=== PATIENT | male | born 1960 | race Caucasian/White ===

== ENCOUNTER 2016-12-21 14:05 | Inpatient (IN) | payer BC ==
[2016-12-21] VITALS (7 sets, daily range): BP systolic 135–170; BP diastolic 68–78
[~2016-12-21] VITALS: Ht 185.4 cm; Wt 73.1 kg
[~2016-12-21 14:05] MED LIST: ASPIR-TRIN325 M1 PO; ASPIRIN81 M1 PO; CRESTOR5 MG PO; LOPRESSOR12.5 MG PO; NOHOMEMEDS; OTC COUGH MED; PLAVIX75 MG PO; Zestril,Prinivil PO; Zocor PO
[2016-12-21 15:35] LABS: HEMATOCRIT 17.7 % (38.0-50.0); MCH 32.2 PG (29.0-34.0); MCHC 31.1 G/DL (30.0-36.0); MCV 103.5 FL (86-99); MEAN PLAT.VOLUME 10.7 uM^3 (9.0-12.4); NRBC (%) 0.5 /100 WBC (0-0); PLATELET COUNT 74 K/uL (156-360); RBC DIS.WIDTH-CV 16.6 % (11.8-14.6); RBC DIS.WIDTH-SD 60.7 % (39-53); RED BLOOD COUNT 1.71 M/uL (4.00-5.50); WHITE BLOOD COUNT 5.6 K/uL (4.1-10.2)
[2016-12-21 15:38] LABS: CHLORIDE 99 mEq/L (99-109); POTASSIUM 4.4 mEq/L (3.7-5.4); SODIUM 136 mEq/L (136-147)
[2016-12-21 15:39] LABS: GLUCOSE 89 mg/dL (70-99)
[2016-12-21 15:41] LABS: ANION GAP 14 MEQ/L (2-14)
[2016-12-21 15:43] LABS: GFR ESTIMATE (CALCULATED) 39 mL/min/
[2016-12-21 15:44] LABS: UREA NITROGEN (BUN) 19 mg/dL (9-23)
[2016-12-21 15:49] LABS: TROP-I INTERPRETATION NEGATIVE; TROPONIN-I < 0.01 ng/mL (0.0-0.30)
[2016-12-21 17:37] LABS: IMM.RETIC FRACTION 30.7 % (3-19); RETIC HGB EQUIVALENT 34.8 (28-36)
[2016-12-21] MEDS ORDERED: ZESTRIL2.5 MG PO (17:53)
[2016-12-21] MEDS ORDERED: LOPRESSOR25 MG PO (17:53)
[2016-12-21] MEDS ORDERED: LO-DOSE ASPIRIN81 M2 PO (17:53)
[2016-12-21 19:19] LABS: TOTAL BILIRUBIN 0.9 mg/dL (0.0-1.0)
[2016-12-21 19:20] LABS: ALKALINE PHOSPHATASE 81 IU/L (3-129)
[2016-12-21 19:23] LABS: DIRECT BILIRUBIN 0.5 mg/dL (0.0-0.3)
[2016-12-21 19:50] LABS: LACTATE DEHYDROGENASE 120 IU/L (20-246)
[2016-12-21 22:55] LABS: GLOBULINS 8.9 G/DL (2.3-3.5)
[2016-12-22] VITALS (16 sets, daily range): BP systolic 103–167; BP diastolic 51–75
[2016-12-22 04:35] LABS: INTER. NORMALIZED RATIO 1.2; PROTHROMBIN TIME 12.1 (9.2-11.2); PTT 27.5 (25-32)
[2016-12-22 04:38] LABS: CHLORIDE 102 mEq/L (99-109); POTASSIUM 3.7 mEq/L (3.7-5.4); SODIUM 138 mEq/L (136-147)
[2016-12-22 04:39] LABS: GLUCOSE 80 mg/dL (70-99)
[2016-12-22 04:40] LABS: HEMATOCRIT 20.8 % (38.0-50.0); MCH 32.1 PG (29.0-34.0); MCHC 33.2 G/DL (30.0-36.0); NRBC (%) 0.9 /100 WBC (0-0); PLATELET COUNT 65 K/uL (156-360); RBC DIS.WIDTH-CV 18.4 % (11.8-14.6); RBC DIS.WIDTH-SD 61.7 % (39-53); RED BLOOD COUNT 2.15 M/uL (4.00-5.50); WHITE BLOOD COUNT 4.6 K/uL (4.1-10.2)
[2016-12-22 04:41] LABS: ANION GAP 13 MEQ/L (2-14); MCV 96.7 FL (86-99)
[2016-12-22 04:43] LABS: GFR ESTIMATE (CALCULATED) 41 mL/min/
[2016-12-22 04:44] LABS: UREA NITROGEN (BUN) 17 mg/dL (9-23)
[2016-12-22 09:22] LABS: HEMATOCRIT 23.7 % (38.0-50.0); MCV 95.2 FL (86-99)
[2016-12-22 12:36] LABS: URINE TOTAL PROTEIN 417 MG/DL (0-10)
[2016-12-22 12:52] LABS: ADD MIUA? YES; BILIRUBIN NEGATIVE; BLOOD SMALL; COLOR YELLOW ((YELLOW)); GLUCOSE (STRIP) NEGATIVE; KETONES NEGATIVE; LEUKOCYTES NEGATIVE; NITRITE NEGATIVE; PROTEIN (STRIP) 30; SPECIFIC GRAVITY 1.012 (1.000-1.030); UROBILINOGEN 0.2 MG/DL (0.2-1.0)
[2016-12-22 13:03] LABS: BACTERIA NONE SEEN /HPF; EPITHELIAL CELLS NONE SEEN /HPF; MUCUS TRACE /LPF; RED BLOOD CELLS 0-5 /HPF (0-5); UCUL ADDED? NO; WHITE BLOOD CELLS 0-5 /HPF (0-5)
[2016-12-22 18:05] LABS: HEMATOCRIT 26.1 % (38.0-50.0); MCV 94.2 FL (86-99)
[2016-12-23] VITALS (7 sets, daily range): BP systolic 124–158; BP diastolic 59–76
[2016-12-23 06:54] LABS: HEMATOCRIT 27.2 % (38.0-50.0); MCH 30.7 PG (29.0-34.0); MCHC 32.4 G/DL (30.0-36.0); MCV 94.8 FL (86-99); MEAN PLAT.VOLUME 10.4 uM^3 (9.0-12.4); NRBC (%) 0.5 /100 WBC (0-0); PLATELET COUNT 64 K/uL (156-360); RBC DIS.WIDTH-SD 60.3 % (39-53); RED BLOOD COUNT 2.87 M/uL (4.00-5.50); WHITE BLOOD COUNT 4.2 K/uL (4.1-10.2)
[2016-12-23 07:21] LABS: ANION GAP 15 MEQ/L (2-14); CHLORIDE 99 MEQ/L (99-109); GFR ESTIMATE (CALCULATED) 51 mL/min/; GLUCOSE 79 mg/dL (70-99); POTASSIUM 3.9 MEQ/L (3.7-5.4); SAMPLE HEMOLYSIS CHECK 0; SAMPLE ICTERIC CHECK 0; SAMPLE LIPEMIA CHECK 0; SODIUM 137 MEQ/L (136-147); UREA NITROGEN (BUN) 13 mg/dL (9-23)
[2016-12-23 11:34] LABS: POC NON-PRINT COM 1 ND
[2016-12-23 13:05] LABS: ALBUMIN 3.33 G/DL (3.6-4.9); ALBUMIN PERCENT 28.2 %; ALPHA-1 GLOBULIN 0.34 G/DL (0.15-0.40); ALPHA-1 PERCENT 2.9 %
[2016-12-23 13:06] LABS: URINE GEL NUMBER 86-9
[2016-12-23 13:06] LABS: ALPHA-2 GLOBULIN 0.83 G/DL (0.45-0.85); BETA PERCENT 9.3 %; GAMMA PERCENT 52.6 %; SERUM GEL NO. 86-6
[2016-12-24] VITALS (12 sets, daily range): BP systolic 125–164; BP diastolic 61–83
[2016-12-24 06:36] LABS: EOSINOPHIL (%) 2.2 % (0-5); EOSINOPHIL COUNT 0.1 K/uL (0-0.3); HEMATOCRIT 22.9 % (38.0-50.0); INSTRUMENT ABS NEUTROPHIL CT 1.5 K/uL; LYMPHOCYTE COUNT 1.9 K/uL (1.0-2.8); MCH 32.2 PG (29.0-34.0); MCHC 33.6 G/DL (30.0-36.0); MCV 95.8 FL (86-99); MEAN PLAT.VOLUME 10.8 uM^3 (9.0-12.4); MONOCYTE (%) 11.5 % (3-12); MONOCYTE COUNT 0.5 K/uL (0-0.8); NEUTROPHIL (%) 37.4 % (45-76); NEUTROPHIL COUNT 1.5 K/uL (1.8-6.4); NRBC (%) 0.5 /100 WBC (0-0); PLATELET COUNT 61 K/uL (156-360); RBC DIS.WIDTH-CV 17.2 % (11.8-14.6); RBC DIS.WIDTH-SD 58.5 % (39-53); RED BLOOD COUNT 2.39 M/uL (4.00-5.50); WHITE BLOOD COUNT 4.1 K/uL (4.1-10.2)
[2016-12-24 06:58] LABS: ANION GAP 14 MEQ/L (2-14); CHLORIDE 100 MEQ/L (99-109); GFR ESTIMATE (CALCULATED) 55 mL/min/; GLUCOSE 86 mg/dL (70-99); POTASSIUM 3.8 MEQ/L (3.7-5.4); SAMPLE HEMOLYSIS CHECK 0; SAMPLE ICTERIC CHECK 0; SAMPLE LIPEMIA CHECK 0; SODIUM 137 MEQ/L (136-147); UREA NITROGEN (BUN) 13 mg/dL (9-23)
[2016-12-24 20:40] LABS: IMMUNOGLOBULIN A 5981 MG/DL (40-350); IMMUNOGLOBULIN G 247 MG/DL (650-1600); IMMUNOGLOBULIN M < 20 MG/DL (50-300)
[2016-12-25 02:41] VITALS: BP 152/79
[2016-12-25 06:14] LABS: URINE TOTAL PROTEIN 451 MG/DL (0-10)
[2016-12-25 08:09] VITALS: BP 154/76
[2016-12-25 12:03] VITALS: BP 146/71
[2016-12-25 16:40] VITALS: BP 133/67
[2016-12-25 16:46] LABS: HEMATOCRIT 24.2 % (38.0-50.0); MCH 31.4 PG (29.0-34.0); MCHC 33.5 G/DL (30.0-36.0); MCV 93.8 FL (86-99); MEAN PLAT.VOLUME 9.7 uM^3 (9.0-12.4); NRBC (%) 0.5 /100 WBC (0-0); PLATELET COUNT 53 K/uL (156-360); RBC DIS.WIDTH-CV 17.2 % (11.8-14.6); RBC DIS.WIDTH-SD 57.4 % (39-53); RED BLOOD COUNT 2.58 M/uL (4.00-5.50)
[2016-12-25 19:00] VITALS: BP 140/63
[2016-12-26 00:01] VITALS: BP 135/62
[2016-12-26 06:11] LABS: MCH 31.2 PG (29.0-34.0); MCHC 33.2 G/DL (30.0-36.0); MEAN PLAT.VOLUME 10.5 uM^3 (9.0-12.4); NRBC (%) 0.8 /100 WBC (0-0); PLATELET COUNT 54 K/uL (156-360); RBC DIS.WIDTH-CV 17.1 % (11.8-14.6); RBC DIS.WIDTH-SD 55.9 % (39-53); RED BLOOD COUNT 2.66 M/uL (4.00-5.50); WHITE BLOOD COUNT 3.9 K/uL (4.1-10.2)
[2016-12-26 06:37] LABS: ANION GAP 16 MEQ/L (2-14); CHLORIDE 97 MEQ/L (99-109); GFR ESTIMATE (CALCULATED) > 59 mL/min/; GLUCOSE 86 mg/dL (70-99); POTASSIUM 3.7 MEQ/L (3.7-5.4); SAMPLE HEMOLYSIS CHECK 0; SAMPLE ICTERIC CHECK 0; SAMPLE LIPEMIA CHECK 0; SODIUM 136 MEQ/L (136-147); UREA NITROGEN (BUN) 17 mg/dL (9-23)
[2016-12-26 09:14] VITALS: BP 135/82
[2016-12-26 15:15] VITALS: BP 146/67
[2016-12-26 20:12] VITALS: BP 140/62
[2016-12-27] VITALS (7 sets, daily range): BP systolic 120–159; BP diastolic 57–69
[2016-12-27 06:39] LABS: HEMATOCRIT 24.5 % (38.0-50.0); MCH 31.4 PG (29.0-34.0); MCHC 33.1 G/DL (30.0-36.0); MEAN PLAT.VOLUME 10.1 uM^3 (9.0-12.4); NRBC (%) 0.5 /100 WBC (0-0); PLATELET COUNT 53 K/uL (156-360); RBC DIS.WIDTH-CV 16.6 % (11.8-14.6); RED BLOOD COUNT 2.58 M/uL (4.00-5.50); WHITE BLOOD COUNT 3.9 K/uL (4.1-10.2)
[2016-12-27 13:06] LABS: ABS NEUTROPHIL COUNT 1.4; EOSINOPHIL ABS CT 0
[2016-12-28] VITALS (12 sets, daily range): BP systolic 116–145; BP diastolic 55–67
[2016-12-28 06:05] LABS: HEMATOCRIT 22.8 % (38.0-50.0); MCHC 32.9 G/DL (30.0-36.0); MCV 94.2 FL (86-99); RBC DIS.WIDTH-CV 16.2 % (11.8-14.6); RBC DIS.WIDTH-SD 54.1 % (39-53); RED BLOOD COUNT 2.42 M/uL (4.00-5.50); WHITE BLOOD COUNT 4.4 K/uL (4.1-10.2)
[2016-12-28 06:30] LABS: ANION GAP 10 MEQ/L (2-14); CHLORIDE 97 MEQ/L (99-109); GFR ESTIMATE (CALCULATED) 44 mL/min/; GLUCOSE 81 mg/dL (70-99); POTASSIUM 4.4 MEQ/L (3.7-5.4); SAMPLE HEMOLYSIS CHECK 0; SAMPLE ICTERIC CHECK 0; SAMPLE LIPEMIA CHECK 0; SODIUM 135 MEQ/L (136-147); UREA NITROGEN (BUN) 19 mg/dL (9-23)
[2016-12-28 07:58] LABS: IMM.PLATELET FRACTION 4.1 (1-7); MEAN PLAT.VOLUME 10.4 uM^3 (9.0-12.4); PLAT.SUFFICIENCY DECREASED; PLATELET COUNT 48 K/uL (156-360)
[2016-12-28] MEDS ORDERED: PANTOPRAZOLE SO40 MG PO (14:52)
[2016-12-28] MEDS ORDERED: ANUCORT-HC25 MG PR (14:56)
[2016-12-28] MEDS ORDERED: CYANOCOBAL1000 MCG/2 SC (14:56)
[2016-12-29 00:05] VITALS: BP 155/68
[2016-12-29 06:10] LABS: HEMATOCRIT 26.1 % (38.0-50.0); MCH 30.5 PG (29.0-34.0); MCV 92.6 FL (86-99); RBC DIS.WIDTH-CV 16.7 % (11.8-14.6); RBC DIS.WIDTH-SD 54.7 % (39-53); RED BLOOD COUNT 2.82 M/uL (4.00-5.50); WHITE BLOOD COUNT 4.3 K/uL (4.1-10.2)
[2016-12-29 07:14] LABS: IMM.PLATELET FRACTION 3.7 (1-7); MEAN PLAT.VOLUME 10.6 uM^3 (9.0-12.4); PLAT.SUFFICIENCY DECREASED; PLATELET COUNT 49 K/uL (156-360)
[2016-12-29 07:40] VITALS: BP 133/65
[2016-12-29 14:23] LABS: IFE GEL NO. CAPI
[2016-12-30 11:25] LABS: IFE GEL NO. CAPI
== END 2016-12-29 13:13 | disposition home or self-care (01) | DRG 841 ==
LOC: EME 14:05 → EDOF 19:46 → 5EAST 19:46 → ENPENDDIS 12-29 → 5EAST 12-29 13:13
PROVIDERS: Anesthesiology; Emergency Medicine; Family Medicine; Hospitalist; Internal Medicine; Student in an Organized Health Care Education/Training Program
DX: C90.00 Multiple myeloma not having achieved remission (principal); D64.9 Anemia, unspecified; D61.818 Other pancytopenia; D89.2 Hypergammaglobulinemia, unspecified; N17.9 Acute kidney failure, unspecified; J44.9 Chronic obstructive pulmonary disease, unspecified; I10 Essential (primary) hypertension; I25.10 Atherosclerotic heart disease of native coronary artery without angina pectoris; K22.70 Barrett's esophagus without dysplasia; K25.9 Gastric ulcer, unspecified as acute or chronic, without hemorrhage or perforation; K57.30 Diverticulosis of large intestine without perforation or abscess without bleeding; K64.8 Other hemorrhoids; M89.9 Disorder of bone, unspecified; N28.1 Cyst of kidney, acquired; R63.4 Abnormal weight loss; R68.83 Chills (without fever); E53.8 Deficiency of other specified B group vitamins; Z79.82 Long term (current) use of aspirin; Z80.42 Family history of malignant neoplasm of prostate; Z82.49 Family history of ischemic heart disease and other diseases of the circulatory system; Z87.891 Personal history of nicotine dependence; I25.2 Old myocardial infarction; Z95.5 Presence of coronary angioplasty implant and graft; Z91.19 Patient's noncompliance with other medical treatment and regimen
CPT/HCPCS: 71020; 71250; 74176; 76770; 77012; 80048; 80069; 80076; 81003; 82232; 82272; 82436; 82607; 82728; 82746; 82784 90; 83615; 83883 90; 84133; 84165; 84166; 84300; 84443; 84466; 84484; 85007; 85014; 85018; 85025; 85027; 85045; 85610; 85730; 86334; 86335; 86900; 86901; 86920; 88305; 88342 TC; 93005; 99281; 99285; G0103; J1200; J2250; J3010; J3420; J7030; P9016

== ENCOUNTER 2017-02-17 20:01 | Observation (INO) | payer BC ==
[~2017-02-17] VITALS: Ht 182.9 cm; Wt 73.0 kg
[~2017-02-17 20:01] MED LIST changes: +ANUCORT-HC25 MG PR; +CYANOCOBAL1000 MCG/2 SC; +LO-DOSE ASPIRIN81 M2 PO; +LOPRESSOR25 MG PO; +PANTOPRAZOLE SO40 MG PO; +ZESTRIL2.5 MG PO
[2017-02-17 20:58] LABS: EOSINOPHIL (%) 4.4 % (0-5); EOSINOPHIL COUNT 0.2 K/uL (0-0.3); HEMATOCRIT 23.2 % (38.0-50.0); IMMATURE GRANULOCYTE (%) 0.6 % (0.0-0.7); LYMPHOCYTE COUNT 0.7 K/uL (1.0-2.8); MCH 30.4 PG (29.0-34.0); MCHC 32.8 G/DL (30.0-36.0); MCV 92.8 FL (86-99); MEAN PLAT.VOLUME 10.2 uM^3 (9.0-12.4); MONOCYTE (%) 16.1 % (3-12); MONOCYTE COUNT 0.6 K/uL (0-0.8); NEUTROPHIL (%) 58.7 % (45-76); PLATELET COUNT 102 K/uL (156-360); RBC DIS.WIDTH-SD 59.5 % (39-53); WHITE BLOOD COUNT 3.4 K/uL (4.1-10.2)
[2017-02-17 21:07] LABS: CHLORIDE 104 mEq/L (99-109); SODIUM 139 mEq/L (136-147)
[2017-02-17 21:08] LABS: INTER. NORMALIZED RATIO 1.2; PROTHROMBIN TIME 13.1 SEC (10.2-12.9)
[2017-02-17 21:10] LABS: GLUCOSE 80 mg/dL (70-99)
[2017-02-17 21:11] LABS: ANION GAP 12 MEQ/L (2-14); PTT 29.1 SEC (25-37)
[2017-02-17 21:12] LABS: TOTAL BILIRUBIN 0.6 mg/dL (0.0-1.0)
[2017-02-17 21:13] LABS: ALKALINE PHOSPHATASE 157 IU/L (3-129); POTASSIUM 3.5 mEq/L (3.7-5.4)
[2017-02-17 21:14] LABS: GFR ESTIMATE (CALCULATED) 55 mL/min/
[2017-02-17 21:15] LABS: UREA NITROGEN (BUN) 15 mg/dL (9-23)
[2017-02-17 21:17] LABS: ADD MIUA? YES; BILIRUBIN NEGATIVE; BLOOD SMALL; COLOR STRAW ((YELLOW)); GLUCOSE (STRIP) NEGATIVE; KETONES NEGATIVE; LEUKOCYTES NEGATIVE; NITRITE NEGATIVE; PROTEIN (STRIP) NEGATIVE; SPECIFIC GRAVITY 1.004 (1.000-1.030); UROBILINOGEN 0.2 MG/DL (0.2-1.0)
[2017-02-17 21:19] LABS: TROP-I INTERPRETATION NEGATIVE; TROPONIN-I < 0.01 ng/mL (0.0-0.30)
[2017-02-17 21:21] LABS: BACTERIA NONE SEEN /HPF; EPITHELIAL CELLS NONE SEEN /HPF; MUCUS NONE SEEN /LPF; RED BLOOD CELLS 0-5 /HPF (0-5); UCUL ADDED? NO; WHITE BLOOD CELLS 0-5 /HPF (0-5)
[2017-02-17] MEDS ORDERED: TYLENOL WITH C1 EACH PO (23:02)
[2017-02-17] MEDS ORDERED: CYANOCOBALAM1000 MCG PO (23:02)
[2017-02-17] MEDS ORDERED: PROTONIX40 MG PO (23:02)
[2017-02-17] MEDS ORDERED: COMPAZINE10 MG PO (23:03)
[2017-02-17] MEDS ORDERED: DECADRON4 MG PO (23:03)
[2017-02-17] MEDS ORDERED: ACYCLOVIR400 MG PO (23:04)
[2017-02-17] MEDS ORDERED: ASPIR 8181 M1 PO (23:04)
[2017-02-17] MEDS ORDERED: BACTRIM,SEPT1 TABLET PO (23:04)
[2017-02-17] MEDS ORDERED: VELCADE3.5 MG SC (23:05)
[2017-02-17] MEDS ORDERED: REVLIMID10 MG PO (23:06)
[2017-02-18 01:33] VITALS: BP 158/72
[2017-02-18 03:17] LABS: HDL CHOLESTEROL 41 MG/DL (Desirable>=40); LDL CHOLESTEROL 66 mg/dL (Desirable<100); NON-HDL CHOLESTEROL 81 mg/dL (Desirable<160); TOTAL CHOLESTEROL 122 mg/dL (Desirable<200); TRIGLYCERIDES 73 MG/DL (Normal: <150)
[2017-02-18 03:30] VITALS: BP 141/66
[2017-02-18 06:14] LABS: TROP-I INTERPRETATION NEGATIVE; TROPONIN-I < 0.01 ng/mL (0.0-0.30)
[2017-02-18 07:01] VITALS: BP 153/70
[2017-02-18 07:55] LABS: HEMATOCRIT 24.1 % (38.0-50.0); MCH 31.1 PG (29.0-34.0); MCHC 32.4 G/DL (30.0-36.0); MEAN PLAT.VOLUME 11.8 uM^3 (9.0-12.4); PLATELET COUNT 110 K/uL (156-360); RBC DIS.WIDTH-CV 18.3 % (11.8-14.6); RBC DIS.WIDTH-SD 62.3 % (39-53); RED BLOOD COUNT 2.51 M/uL (4.00-5.50); WHITE BLOOD COUNT 2.7 K/uL (4.1-10.2)
[2017-02-18 08:25] LABS: Estimated Average Glucose 131 mg/dL (70-123); HEMOGLOBIN A1c (GLYCOHEMOGLOB) 6.2 % HGB (Below 5.7)
[2017-02-18 08:29] LABS: ANION GAP 10 MEQ/L (2-14); CHLORIDE 106 MEQ/L (99-109); POTASSIUM 3.5 MEQ/L (3.7-5.4); SAMPLE HEMOLYSIS CHECK 0; SAMPLE ICTERIC CHECK 0; SAMPLE LIPEMIA CHECK 0; SODIUM 140 MEQ/L (136-147)
[2017-02-18 08:34] LABS: GFR ESTIMATE (CALCULATED) 51 mL/min/; GLUCOSE 76 mg/dL (70-99); UREA NITROGEN (BUN) 14 mg/dL (9-23)
[2017-02-18 12:34] VITALS: BP 158/47
[2017-02-18 12:41] LABS: TROP-I INTERPRETATION NEGATIVE; TROPONIN-I < 0.01 ng/mL (0.0-0.30)
[2017-02-18 15:03] VITALS: BP 144/71
== END 2017-02-18 16:53 | disposition home or self-care (01) ==
LOC: EME → EDBD 20:01 → EME 20:01 → EDOF 02-18 00:23 → 5WEST 02-18 00:23 → ENRESERV 02-18 00:26 → 5WEST 02-18 01:23
PROVIDERS: Emergency Medicine; Hospitalist; Physician Assistant Medical
DX: G45.9 Transient cerebral ischemic attack, unspecified (principal); I12.9 Hypertensive chronic kidney disease with stage 1 through stage 4 chronic kidney disease, or unspecified chronic kidney disease; N18.3 Chronic kidney disease, stage 3 (moderate); C90.00 Multiple myeloma not having achieved remission; D61.810 Antineoplastic chemotherapy induced pancytopenia; E87.6 Hypokalemia; E78.5 Hyperlipidemia, unspecified; I25.10 Atherosclerotic heart disease of native coronary artery without angina pectoris; Z95.5 Presence of coronary angioplasty implant and graft; S22.42XA Multiple fractures of ribs, left side, initial encounter for closed fracture; I25.2 Old myocardial infarction; J44.9 Chronic obstructive pulmonary disease, unspecified; Z92.21 Personal history of antineoplastic chemotherapy; R04.2 Hemoptysis; Z87.891 Personal history of nicotine dependence
CPT/HCPCS: 70450; 70551; 71020; 71250; 78582; 80048; 80053; 80061; 81003; 83036; 83605; 83690; 84484; 85025; 85027; 85610; 85730; 86850; 86900; 86901; 86920; 87040; 93005; 93880; 99281; 99285; A9540; A9567; G0378

== ENCOUNTER 2017-10-06 13:53 | Emergency (ER) | payer BC ==
[~2017-10-06] VITALS: Ht 182.9 cm; Wt 73.6 kg
[~2017-10-06 13:53] MED LIST changes: +ACYCLOVIR400 MG PO; +ASPIR 8181 M1 PO; +BACTRIM,SEPT1 TABLET PO; +COMPAZINE10 MG PO; +CYANOCOBALAM1000 MCG PO; +DECADRON4 MG PO; +PROTONIX40 MG PO; +REVLIMID10 MG PO; +TYLENOL WITH C1 EACH PO; +VELCADE3.5 MG SC
[2017-10-06 14:42] LABS: HEMATOCRIT 31.3 % (38.0-50.0); HEMOGLOBIN 10.9 G/DL (12.5-16.6); MCH 34.2 PG (29.0-34.0); MCHC 34.8 G/DL (30.0-36.0); MCV 98.1 FL (86-99); RBC DIS.WIDTH-CV 14.8 % (11.8-14.6); RBC DIS.WIDTH-SD 53.4 % (39-53); RED BLOOD COUNT 3.19 M/uL (4.00-5.50); WHITE BLOOD COUNT 5.7 K/uL (4.1-10.2)
[2017-10-06 14:50] LABS: APPEARANCE SL.HAZY ((CLEAR)); BILIRUBIN NEGATIVE; BLOOD SMALL; COLOR YELLOW ((YELLOW)); GLUCOSE (STRIP) NEGATIVE; KETONES NEGATIVE; LEUKOCYTES SMALL; NITRITE NEGATIVE; PROTEIN (STRIP) 100; SPECIFIC GRAVITY 1.009 (1.000-1.030); UROBILINOGEN 0.2 MG/DL (0.2-1.0)
[2017-10-06 14:55] LABS: CHLORIDE 106 mEq/L (99-109); POTASSIUM 3.8 mEq/L (3.7-5.4); SODIUM 136 mEq/L (136-147)
[2017-10-06 14:57] LABS: GLUCOSE 92 mg/dL (70-99)
[2017-10-06 15:01] LABS: CREATININE 1.3 mg/dL (0.6-1.3); GFR ESTIMATE (CALCULATED) > 59 mL/min/ (58.99-99999)
[2017-10-06 15:01] LABS: BACTERIA RARE /HPF; EPITHELIAL CELLS RARE /HPF; MUCUS TRACE /LPF; RED BLOOD CELLS 0-5 /HPF (0-5); UCUL ADDED? YES; WHITE BLOOD CELLS 20-30 /HPF (0-5)
[2017-10-06 15:02] LABS: UREA NITROGEN (BUN) 14 mg/dL (9-23)
[2017-10-06 15:56] LABS: PLAT.SUFFICIENCY DECREASED; PLATELET COUNT 80 K/uL (156-360)
[2017-10-06] MEDS ORDERED: CIPRO500 MG PO (16:08)
[2017-10-06 16:17] VITALS: BP 154/76
== END 2017-10-06 16:19 | disposition home or self-care (01) ==
LOC: EME 13:53
DX: N39.0 Urinary tract infection, site not specified (principal); M79.1 Myalgia; J44.9 Chronic obstructive pulmonary disease, unspecified; I10 Essential (primary) hypertension; I25.2 Old myocardial infarction; Z95.5 Presence of coronary angioplasty implant and graft; Z88.6 Allergy status to analgesic agent; Z87.891 Personal history of nicotine dependence
CPT/HCPCS: 71046; 80048; 81003; 85027; 87086; 87502; 99281; 99284

== ENCOUNTER 2017-10-14 14:22 | Emergency (ER) | payer BC ==
[~2017-10-14] VITALS: Ht 182.9 cm; Wt 71.3 kg
[~2017-10-14 14:22] MED LIST changes: +CIPRO500 MG PO
[2017-10-14 15:48] LABS: EOSINOPHIL (%) 8.9 % (0-5); EOSINOPHIL COUNT 0.4 K/uL (0-0.3); HEMATOCRIT 27.3 % (38.0-50.0); HEMOGLOBIN 9.6 G/DL (12.5-16.6); IMMATURE GRANULOCYTE (%) 0.5 % (0.0-0.7); LYMPHOCYTE (%) 31.2 % (15-42); LYMPHOCYTE COUNT 1.3 K/uL (1.0-2.8); MCH 33.8 PG (29.0-34.0); MCHC 35.2 G/DL (30.0-36.0); MCV 96.1 FL (86-99); MONOCYTE (%) 16.5 % (3-12); MONOCYTE COUNT 0.7 K/uL (0-0.8); NEUTROPHIL (%) 41.9 % (45-76); NEUTROPHIL COUNT 1.8 K/uL (1.8-6.4); PLATELET COUNT 151 K/uL (156-360); RBC DIS.WIDTH-CV 14.4 % (11.8-14.6); RBC DIS.WIDTH-SD 50.5 % (39-53); RED BLOOD COUNT 2.84 M/uL (4.00-5.50); WHITE BLOOD COUNT 4.2 K/uL (4.1-10.2)
[2017-10-14 15:56] LABS: ALBUMIN 3.5 g/dL (3.2-4.8); CHLORIDE 102 mEq/L (99-109); POTASSIUM 3.8 mEq/L (3.7-5.4); SODIUM 136 mEq/L (136-147)
[2017-10-14 15:57] LABS: MAGNESIUM 2.3 mg/dL (1.3-2.7)
[2017-10-14 15:58] LABS: GLUCOSE 99 mg/dL (70-99)
[2017-10-14 15:59] LABS: TOTAL PROTEIN 6.7 g/dL (6.4-8.3)
[2017-10-14 16:00] LABS: TOTAL BILIRUBIN 0.6 mg/dL (0.0-1.0)
[2017-10-14 16:02] LABS: ALKALINE PHOSPHATASE 142 IU/L (3-129); CREATININE 1.3 mg/dL (0.6-1.3); GFR ESTIMATE (CALCULATED) > 59 mL/min/ (58.99-99999)
[2017-10-14 16:03] LABS: UREA NITROGEN (BUN) 17 mg/dL (9-23)
[2017-10-14 16:04] LABS: AST (GOT) 50 IU/L (2-34)
[2017-10-14 16:05] LABS: ALT (GPT) 63 IU/L (3-49)
[2017-10-14 17:17] LABS: APPEARANCE SL.HAZY ((CLEAR)); BILIRUBIN NEGATIVE; BLOOD SMALL; COLOR YELLOW ((YELLOW)); GLUCOSE (STRIP) NEGATIVE; KETONES NEGATIVE; LEUKOCYTES LARGE; NITRITE NEGATIVE; PROTEIN (STRIP) 30; SPECIFIC GRAVITY 1.008 (1.000-1.030); UROBILINOGEN 0.2 MG/DL (0.2-1.0)
[2017-10-14 17:21] LABS: BACTERIA RARE /HPF; EPITHELIAL CELLS RARE /HPF; MUCUS NONE SEEN /LPF; RED BLOOD CELLS 0-5 /HPF (0-5); UCUL ADDED? YES; WHITE BLOOD CELLS TNTC /HPF (0-5)
[2017-10-14 19:19] VITALS: BP 121/63
== END 2017-10-14 19:21 | disposition home or self-care (01) ==
LOC: EME 14:22
PROVIDERS: Emergency Medicine
DX: N39.0 Urinary tract infection, site not specified (principal); I95.1 Orthostatic hypotension; E86.0 Dehydration; J44.9 Chronic obstructive pulmonary disease, unspecified; I10 Essential (primary) hypertension; C90.00 Multiple myeloma not having achieved remission; Z94.81 Bone marrow transplant status; I25.2 Old myocardial infarction; Z95.5 Presence of coronary angioplasty implant and graft; Z87.891 Personal history of nicotine dependence; Z79.82 Long term (current) use of aspirin
CPT/HCPCS: 71045; 80053; 81003; 83735; 85025; 87086; 87493; 93005; 99281; 99285; J0696; J7040